=== PATIENT | female | born 1990 | race Caucasian/White ===

== ENCOUNTER 2020-11-25 01:10 | Emergency (ER) | payer MEDICAID ==
[~2020-11-25] VITALS: Ht 160 cm; Wt 59.0 kg
--- NOTE | 2020-11-25 01:15 | NUR ---
pt bibself c/o pain on left hand pinky finger s/p cutting it with a fruit dryer. Pt aaox4 breathing evenly and unlabored. Pt attached to monitor and pox. pt skin warm, and dry. Emt at bedside for wound care.Will continue to monitor.
[2020-11-25] MEDS ORDERED: TDAP [DIPH/PERTUSSIS/TET] 0.5 ML VIAL IM ONE ×2 (01:26→01:30)
[2020-11-25] MEDS ORDERED: LIDOCAINE 1% INJ 50 ML MDV IJ ONE (01:26)
--- NOTE | 2020-11-25 02:00 | NUR ---
at bedside for stitches
--- NOTE | 2020-11-25 02:07 | NUR ---
Patient discharged to home in stable condition. Written and verbal after care instructions given. Patient verbalizes understanding of instruction. Pt ambulatory with a steady gait
[2020-11-25 02:10] VITALS: BP 125/95
== END 2020-11-25 02:07 | disposition home or self-care (01) ==
LOC: ER 01:13
DX: S61.217A Laceration without foreign body of left little finger without damage to nail, initial encounter (principal); W26.8XXA Contact with other sharp object(s), not elsewhere classified, initial encounter; Y93.89 Activity, other specified; Y92.89 Other specified places as the place of occurrence of the external cause; Y99.0 Civilian activity done for income or pay
CPT/HCPCS: 12001; 90471; 90715; 99283; A6403; J3490